=== PATIENT | female | born 1985 | race African-American/Black ===

== ENCOUNTER 2024-11-07 14:01 | Outpatient (AMB) | payer OTHER, SELFPAY ==
--- NOTE | 2024-11-07 14:13 | MHC.PC.OV ---
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 Accompanied by: Self / Same As Patient Allergies No Known Allergies Allergy (Verified 11/07/24 14:45) Medication List - Last Reconciled 11/07/24 by Rosa Evans PA-C No Known Home Meds Tobacco use date assessed: 11/07/24 Dental Screening Dental Screen Date: 11/07/24 Did you have a dental visit in the last 12 months?: Yes Did you have a dental problem in the last 6 months where you did not have access to dental care?: No Was dental information given to patient?: Patient has dentist HPI establish care HPI Details The patient is a 39-year-old female presenting for a wellness visit and evaluation of keloid formation. The patient reports discomfort due to keloid formation, which is scheduled for surgical removal at [facility] in [place] next month. The keloids are located on the face, causing significant discomfort, although they are not visibly prominent. The patient has self-diagnosed anemia, previously experiencing dizziness and bruising, for which she took iron supplements until two weeks ago. She is currently not on any medications and has no known family history of colon, breast, or ovarian cancer. The patient reports right foot pain, which began and has recently recurred after a month. The pain is suspected to be due to plantar fasciitis, and she is considering an x-ray and referral to a road mixer operator for further evaluation. Social History - Family status: with a [id number] child - Origin: Originally from [place], frequently visits home [facility] Medical History (Updated 11/07/24 @ 14:47 by Rosa Evans PA-C) Anemia Right foot pain Acne keloid Family History Father BP (high blood pressure) Diabetes Mother No problems noted. Social History Housing: Apartment Alcohol intake: current Alcohol intake frequency: holidays/special occasions only Patient Tobacco Use Status: Never used Tobacco service: No Current occupational status: employed Cognitive needs: No Hearing needs: No Vision needs: No Questionnaire PHQ-9 Over the last 2 weeks, how often have you been bothered by any of the following problems? 1. Little interest or pleasure in doing things: not at all 2. Feeling down, depressed, or hopeless: not at all 3. Trouble falling or staying asleep, or sleeping too much: not at all 4. Feeling tired or having little energy: not at all 5. Poor appetite or overeating: not at all 6. Feeling bad about yourself - or that you are a failure or have let yourself or your family down: not at all 7. Trouble concentrating on things, such as reading the newspaper or watching television: not at all 8. Moving or speaking so slowly that other people could have noticed. Or the opposite - being so fidgety or restless that you have been moving around a lot more than usual: not at all 9. Thoughts that you would be better off or of hurting yourself in some way: not at all Total score: 0 Depression Screening Interpretation: Negative Depression Screening Done: Yes 51173 - PHQ-9 Billing: Yes Source: Developed by Drs. Sohan Jenkins, Shari Cardenas, Sin Allen and colleagues, with an educational mila from [employer]. Thrive Questionnaire Date Thrive assessed: 11/07/24 I am a: Patient What is your living situation today?: I have a steady place to live Within the past 12 months, did the food you bought not last and you didn't have the money to get more?: Never true Within the past 12 months, did you worry whether your food would run out before you got money to buy more?: Never true Do you have trouble paying for medicines?: No Do you have trouble getting transportation to medical appointments?: No Do you have trouble paying your heating and electricity bill?: No Do you have trouble taking care of your child, family member or friend?: No Do you have trouble with day-to-day activities such as bathing, preparing meals, shopping, managing finances, etc.?: No Are you currently unemployed and looking for a job?: No Are you interested in more education?: No Please select the resources that you would like help with: None THRIVE Score: 0 AUDIT C Alcohol Use Questionnaire (AUDIT-C) 1. How often do you have a drink containing alcohol?: Monthly or less 2. How many drinks containing alcohol do you have on a typical day when you are drinking?: 1 or 2 3. How often do you have six or more drinks on one occasion?: Never Total Score: 1 Score Reviewed/Action Taken: No PEPE-7 AMB Questionnaire PEPE-7 Date PEPE - 7 assessed: 11/07/24 Feeling nervous, anxious, or on edge: 0 = Not at all Not being able to stop or control worryin = Not at all Worrying too much about different things: 0 = Not at all Trouble relaxin = Not at all Being so restless that it is hard to sit still: 0 = Not at all Becoming easily annoyed or irritable: 0 = Not at all Feeling afraid as if something awful might happen: 0 = Not at all Total PEPE-7 score (0-4 normal; 5-9 mild; 10-14 moderate; 15-21 severe): 0 Source: Developed by Drs. Sohan Jenkins, Shari Cardenas, Sin Allen and colleagues, with an educational mila from [employer]. PEPE-7 Assessment Billing PEPE-7 Assessment Tool: PEPE-7 Assessment 17841 Review of Systems Const Details: - Dermatological: Reports discomfort from keloid formation - Hematological: Reports dizziness and bruising, denies current anemia symptoms - Gastrointestinal: Denies black or bloody stools, no unintentional weight loss - Musculoskeletal: Reports right foot pain, denies leg swelling All systems reviewed & are unremarkable except as noted in HPI and below Physical exam (Primary Care) Vital Signs: Last Vital Signs Temp 97.8 F 11/07/24 14:17 Pulse 64 11/07/24 14:17 Resp 14 11/07/24 14:17 BP 131/85 11/07/24 14:17 Pulse Ox 99 11/07/24 14:17 Oxygen Delivery Method Room Air 11/07/24 14:17 Care Plan Goal for BP management: <140/90 at goal BMI result Body Mass Index 29.9 BMI Assessment/Plan discussion: High BMI High, discussed plan: lifestyle, weight reduction, dietary, physical activity and alcohol moderation Tobacco/Smoking Status: Tobacco use Status Tobacco use date assessed 11/07/24 11/07/24 14:17 Patient Tobacco Use Status Never used Tobacco 11/07/24 14:21 PHQ-9: PHQ-9 Score PHQ-9: Total score 0 11/07/24 14:17 Depression Screening Interpretation: Negative Thrive Assessment: Date of Thrive Assessment Date Thrive assessed 11/07/24 11/07/24 14:17 Const Other: Appearance: Alert. Oriented X3. No acute distress. Head: Normal external exam. Normocephalic. Atraumatic. Eyes: Pupils are equal, round, and reactive to light. Extraocular movements intact. Conjunctiva and sclera normal. Eyelids normal. Ears: External auditory canal normal. Tympanic membranes normal. Throat: Pharynx normal. Uvula midline. Moist mucous membranes. Neck: Normal inspection. Neck supple. Full range of motion. No adenopathy. Thyroid Normal. No meningeal signs. No neck mass noted. Cardiovascular: Normal heart rate and rhythm. Heart sound normal. No murmurs noted. Pulses normal throughout. Respiratory: No respiratory distress. Painless inspiration. Breath sounds normal. No wheezes/rales/rhonchi noted. Chest nontender. No accessory muscle usage noted or decreased air movement noted. Abdomen: Soft and nontender. Bowel sounds normal in all 4 quadrants. No distention noted. No organomegaly noted. No visible injury noted. Back: No costovertebral angle tenderness. Full range of motion noted. Skin: Skin warm and dry. Normal skin color. Normal skin turgor. No rashes/lesions/lacerations noted. Extremities: No lower extremity edema. Right foot pain noted, possible plantar fasciitis. Otherwise all other extremities exhibit normal range of motion nontender. Neuro: Oriented X 3. No motor deficit. No sensory deficit. Reflexes normal. Coding Level of Care Code New Pt Level 4 (99471) Complex EM visit Add On G2211 Diagnoses Acne keloid L73.0 Anemia D64.9 Right foot pain M79.671 Additional Codes PHQ-9 - 87152 - PHQ-9 Billing: Yes ([id number]) PEPE-7 Assessment Billing - PEPE-7 Assessment Tool: PEPE-7 Assessment 62137 ([id number]) Assessment & Plan Assessment & Plan (1) Acne keloid: Code(s): L73.0 - Acne keloid Category: Medical Plan: The patient is scheduled for surgical removal of keloids at [facility] in [place] next month. (2) Anemia: Code(s): D64.9 - Anemia, unspecified Category: Medical Plan: The patient has self-diagnosed anemia and previously took iron supplements, which she stopped two weeks ago. A comprehensive blood panel will be conducted to assess her hematological status. (3) Right foot pain: Code(s): M79.671 - Pain in right foot Category: Medical Plan: The patient reports right foot pain, suspected to be plantar fasciitis, and will undergo an x-ray and referral to a road mixer operator for further evaluation. Plan Plan Patient was informed and verbally consented to the use of an ambient scribe for clinic note documentation during this visit. 1. Keloid Formation The patient is scheduled for surgical removal of keloids at [facility] in [place] next month. 2. Anemia (Self-Diagnosed) The patient has self-diagnosed anemia and previously took iron supplements, which she stopped two weeks ago. A comprehensive blood panel will be conducted to assess her hematological status. 3. Right Foot Pain, Possible Plantar Fasciitis The patient reports right foot pain, suspected to be plantar fasciitis, and will undergo an x-ray and referral to a road mixer operator for further evaluation. I discussed with the patient the plan for her upcoming keloid surgery and the need for preoperative blood work and an EKG. We also talked about her self-diagnosed anemia and the importance of a comprehensive blood panel to evaluate her current status. Additionally, we addressed her right foot pain, likely due to plantar fasciitis, and the plan for an x-ray and road mixer operator referral. I advised her to complete the blood work while fasting and to ensure all preoperative requirements are met before her surgery date. Orders: Orders Complete Blood Count Auto Diff Today Z00.00 - Encounter for general adult medical examination without abnormal findings Comprehensive [place]. Panel Fast Today Z00.00 - Encounter for general adult medical examination without abnormal findings C Reactive Protein Today Z00.00 - Encounter for general adult medical examination without abnormal findings Lipid Panel Today Z00.00 - Encounter for general adult medical examination without abnormal findings Liver Panel Today Z00.00 - Encounter for general adult medical examination without abnormal findings Magnesium Today Z00.00 - Encounter for general adult medical examination without abnormal findings Vitamin D 25-OH Total Today Z00.00 - Encounter for general adult medical examination without abnormal findings Vitamin B12 and Folate Today Z00.00 - Encounter for general adult medical examination without abnormal findings TSH reflex Free T4 Today Z00.00 - Encounter for general adult medical examination without abnormal findings Hemoglobin A1c Today Z00.00 - Encounter for general adult medical examination without abnormal findings ECG 12 lead EKG Today L73.0 - Acne keloid XR foot RT min 3V Today M79.671 - Pain in right foot Referrals Podiatry Referral M79.671 - Pain in right foot Patient Instructions: - Complete fasting blood work and EKG before surgery. - Follow up with a road mixer operator for right foot pain evaluation. - Monitor for any new symptoms and report if they occur.
[2024-11-07 14:17] VITALS: BP 131/85; PULSE 64; RESP 14; TEMP 36.6; O2SAT 99; BMI 29.9
== END 2024-11-07 14:40 | disposition home or self-care (01) ==
LOC: HO.HMCSH 14:01
PROVIDERS: PCP Physician Assistant Medical; Visit Provider Physician Assistant Medical
DX: L73.0 Acne keloid (principal); D64.9 Anemia, unspecified; M79.671 Pain in right foot

== ENCOUNTER → 2024-11-07 14:01 | Outpatient (BNVA) | payer OTHER, SELFPAY | PROVIDERS: PCP Physician Assistant Medical; Visit Provider Physician Assistant Medical | DX: Z00.00 Encounter for general adult medical examination without abnormal findings (principal); L73.0 Acne keloid; D64.9 Anemia, unspecified; M79.671 Pain in right foot | CPT/HCPCS: 96127; 99202 ==

== ENCOUNTER 2024-11-18 09:37 | Outpatient (REF) | payer OTHER, SELFPAY ==
--- NOTE | ~2024-11-18 | XR_ITS ---
CLINICAL HISTORY: M79.671 - Pain in right foot 3 view right foot Comparison: None provided Findings: Bones intact. No dislocations. No significant arthritic change or erosions. No ankle effusion. No radiopaque foreign body. IMPRESSION: 1. No acute findings. This document has been electronically signed by: Oscar Munoz MD on 11/18/2024 15:20:26
[2024-11-18 09:56] LABS: MANUAL DIFF FLAG NO
--- NOTE | 2024-11-18 10:13 | ECG_ITS ---
Test Reason : l73.0 Blood Pressure : */* mmHG Vent. Rate : 69 BPM Atrial Rate : 69 BPM P-R Int : 176 ms QRS Dur : 70 ms QT Int : 384 ms P-R-T Axes : 2 35 22 degrees QTcB Int : 411 ms Normal sinus rhythm with sinus arrhythmia Low voltage QRS Borderline ECG No previous ECGs available Referred By: Rosa Evans Electronically Signed By: Mookie Souza
[2024-11-18 10:20] LABS: Hematocrit 41.8 % (37.0-47.0); Hemoglobin 14.3 g/dl (12.0-16.0); Imm Gran Abs Auto 0.02 X10*3/uL (0.00-0.03); Imm Gran Pct Auto 0.4 % (0.0-0.4); Lymphocytes Absolute Auto 2.1 X10*3/uL (1.2-4.9); Mean Corpuscular HGB Conc 34.2 g/dl (31.0-35.0); Mean Corpuscular Hemoglobin 31.7 pg (27.0-33.0); Mean Corpuscular Volume 92.7 fL (80.0-98.0); NRBC Abs Auto 0.000 X10*3/uL (0.0-0.012); NRBC Pct Auto 0.0 /100WBC (0.0-0.2); Platelet Count 208 X10*3/uL (160-400); Red Blood Count 4.51 X10*6/uL (4.20-5.50); White Blood Count 5.4 X10*3/uL (4.8-10.8)
[2024-11-18 11:00] LABS: Alanine Aminotransferase 24 U/L (0-31); Albumin Level 4.1 g/dL (3.5-5.0); Alkaline Phosphatase 79 U/L (39-117); Anion Gap 8 (12-20); Aspartate Amino Transferase 21 U/L (5-31); Blood Urea Nitrogen 18 mg/dL (9-16); Calcium 8.8 mg/dL (8.4-10.2); Carbon Dioxide 29 mmol/L (22-29); Chloride 108 mmol/L (96-108); Cholesterol 181 mg/dL (<200); Estimated Glomerular Filt Rate > 60; HDL Cholesterol 69 mg/dL (>40); Magnesium 1.8 mg/dL (1.6-2.6); Potassium 4.2 mmol/L (3.3-5.1); Sodium 141 mmol/L (135-145); Total Protein 7.1 g/dL (6.5-8.0); Triglycerides 61 mg/dL (<150)
[2024-11-18 11:44] LABS: Folate 4.2 ng/mL (> or = 4.0); Vitamin B12 674 pg/mL (200-900)
[2024-11-18 12:30] LABS: Hemoglobin A1C 121.0990 umol/L; Total Hemoglobin (HGBA1C) 3709.9923 umol/L
== END 2024-11-18 09:38 | disposition home or self-care (01) ==
LOC: HO.LAB 09:37
PROVIDERS: PCP Physician Assistant Medical; Visit Provider Physician Assistant Medical
DX: Z00.00 Encounter for general adult medical examination without abnormal findings (principal); M79.671 Pain in right foot; L73.0 Acne keloid
CPT/HCPCS: 36415; 73630; 80053; 80061; 80076; 82248; 82306; 82607; 82746; 83036; 83735; 84443; 85025; 86140; 93005

== ENCOUNTER → 2024-11-18 09:57 | Outpatient (BNV) | payer OTHER, SELFPAY | PROVIDERS: PCP Physician Assistant Medical; Visit Provider Radiology Vascular & Interventional Radiology | DX: M79.671 Pain in right foot (principal) | CPT/HCPCS: 73630 ==

== ENCOUNTER → 2024-11-18 10:13 | Outpatient (BNV) | payer OTHER, SELFPAY | PROVIDERS: PCP Physician Assistant Medical; Visit Provider Internal Medicine Cardiovascular Disease | DX: I73.00 Raynaud's syndrome without gangrene (principal) | CPT/HCPCS: 93010 ==

== ENCOUNTER 2024-12-25 08:44 | Outpatient (AMB) | payer OTHER, SELFPAY ==
--- NOTE | 2024-12-25 08:50 | A.OFFVIS_ITS ---
Vital Signs 3 12/25/24 08:55 Height 5 ft 3 in Weight 169 lb BMI 29.9 Intake Visit Reasons: pain in right foot Intake Note: Marivel is a 39 year old female who presents to the office today as a new patient visit referred by her PCP Rosa Evans for pain in her right foot. Pt states this pain began and has recurred and been consistent for the past three months. She mention that the pain is located on the plantar aspect of the heel and she has not tried anything for the pain at this time. Patient reports the pain is initial step in the morning and finds that it gets better through out the day. Allergies No Known Allergies Allergy (Verified 12/25/24 08:54) Medication List - Last Reconciled 12/25/24 by Jenny Ramsey DPM methylprednisolone (Medrol (Neeraj)) PO PER PKG DIR HPI Comments Details: The patient is a 39-year-old female with a past medical history as seen below presenting with pain in the right foot. The pain was first experienced in 2019 following childbirth but resolved until it recurred three months ago. The pain is most pronounced upon waking and taking the first step, as well as after prolonged sitting or standing. The patient describes the pain as occurring on the plantar aspect of the foot at the medial and lateral aspects of the heel, with some discomfort to the posterior aspect of the heel. No specific interventions have been undertaken to alleviate the pain, although the patient notes some relief with continue walking. The patient has not taken regular medication for the pain but did experience relief with ibuprofen after prolonged walking during a recent event. She denies any inciting injuries. She denies any other pedal concerns. She denies any current nausea, vomiting, fever, or chills. PENDING SALE TO [facility] Medical History (Updated 12/25/24 @ 09:19 by Jenny Ramsey DPM) Enthesopathy of right foot Calcaneal spur of right foot Plantar fasciitis of right foot Hyperlipidemia LDL goal <100 Anemia Right foot pain Acne keloid Family History Father BP (high blood pressure) Diabetes Mother No problems noted. Social History Housing: Apartment Alcohol intake: current Alcohol intake frequency: holidays/special occasions only Patient Tobacco Use Status: Never used Tobacco service: No Current occupational status: employed Cognitive needs: No Hearing needs: No Vision needs: No Review of Systems Const Details: - Musculoskeletal: Reports pain in the right heel, particularly upon waking and after prolonged sitting or standing. All systems reviewed & are unremarkable except as noted in HPI and below Physical Exam Vital Signs: BMI result Body Mass Index 29.9 Extrem Other: Right lower extremity focused physical exam: Derm: Open lesions abrasions or wounds noted. Skin supple and turgor within normal limits. No clinical signs of infection. No hyperkeratotic lesions noted. Vascular: DP/PT pulses palpable. Capillary refill time less than 3 seconds. Temperature gradient warm to warm. Pedal hair present. No varicosities noted. No edema noted. Neuro: Protective sensation is grossly intact. MSK: Pain on palpation to the plantar aspect of the heel worsened to the medial aspect with slight discomfort to the lateral aspect and posterior aspects of the heel. Negative windlass mechanism. Range of motion of the forefoot hindfoot and ankle within normal limits. Mildly antalgic gait. Pes planus foot type. Ankle/foot/toe images: 2 1. Results Reviewed Results Reviewed: Podiatry read of right foot x-rays (11/18/2024): Spurring noted to the plantar aspect of the calcaneus. Minimal joint space narrowing noted to the 1st MPJ. Mild osteophytic changes noted to the base of the 1st distal phalanx. No acute fractures or dislocations noted. Right foot x-rays (11/18/2024): Findings: Bones intact. No dislocations. No significant arthritic change or erosions. No ankle effusion. No radiopaque foreign body. IMPRESSION: 1. No acute findings. Assessment & Plan Assessment & Plan (1) Right foot pain: Code(s): M79.671 - Pain in right foot Category: Medical (2) Plantar fasciitis of right foot: Code(s): M72.2 - Plantar fascial fibromatosis Category: Medical (3) Calcaneal spur of right foot: Code(s): M77.31 - Calcaneal spur, right foot Category: Medical (4) Enthesopathy of right foot: Code(s): M77.8 - Other enthesopathies, not elsewhere classified Category: Medical Plan Patient was informed and verbally consented to the use of an ambient scribe for clinic note documentation during this visit. I discussed with the patient that the pain in her right foot is consistent with plantar fasciitis, likely exacerbated by a bone spur observed on the X-ray. We reviewed conservative treatment options, including stretching exercises and the use of supportive footwear. I explained the potential benefits of an oral steroid to reduce inflammation and outlined the follow-up plan to reassess symptoms and consider additional interventions if needed. 1. Plantar fascial fibromatosis - Initiate conservative treatment with stretching exercises (provided patient with plantar fascial exercise instructional forms: POD.003: 12/02). - Prescribed Medrol dose pack, to reduce inflammation and pain. - Advise wearing supportive footwear and avoiding walking barefoot to prevent exacerbation of symptoms. - Recommended patient use Superfeet (green color) for pes planus foot type. 2. Calcaneal spur, right foot - Addressed as part of the management for plantar fasciitis, as the bone spur is a result of chronic ligament pulling. Patient is to return to the office in two weeks to assess response to treatment and consider further interventions such as night splints, injections, or physical therapy if necessary. Medications: New 2 methylprednisolone (Medrol (Neeraj)) PO PER PKG DIR 21 ea 0RF Plantar fasciitis of right foot M72.2 - Plantar fascial fibromatosis, M77.31 - Calcaneal spur, right foot, M79.671 - Pain in right foot Coding Level of Care Code New Pt Level 4 (06705) Diagnoses Right foot pain M79.671 Plantar fasciitis of right foot M72.2 Calcaneal spur of right foot M77.31 Enthesopathy of right foot M77.8 Time Spent (min) 50
[2024-12-25 08:55] VITALS: BMI 29.9
== END 2024-12-25 09:08 | disposition home or self-care (01) ==
LOC: HO.HPODS 08:45
PROVIDERS: PCP Physician Assistant Medical; Visit Provider Student in an Organized Health Care Education/Training Program
DX: M79.671 Pain in right foot (principal); M72.2 Plantar fascial fibromatosis; M77.31 Calcaneal spur, right foot; M77.8 Other enthesopathies, not elsewhere classified
CPT/HCPCS: 99204

== ENCOUNTER → 2024-12-25 08:44 | Outpatient (BNVA) | payer OTHER, SELFPAY | PROVIDERS: PCP Physician Assistant Medical; Visit Provider Student in an Organized Health Care Education/Training Program | DX: M79.671 Pain in right foot (principal); M72.2 Plantar fascial fibromatosis; M77.31 Calcaneal spur, right foot; M77.8 Other enthesopathies, not elsewhere classified | CPT/HCPCS: 99202 ==